=== PATIENT | female | born 1970 | race Caucasian/White ===

== ENCOUNTER 2023-06-22 16:54 | Emergency (ER) | payer MEDICAID, SELFPAY ==
[2023-06-22 16:56] VITALS: BP 132/61; PULSE 68; RESP 14; TEMP 36.9; O2SAT 95; BMI 21.2
--- NOTE | 2023-06-22 17:26 | PC.NURSE ---
DR BROWN AT BEDSIDE
--- NOTE | 2023-06-22 17:31 | HMH.EDGENADL ---
Discharge Plan Disposition Patient Disposition: Home, Self-Care Chief Complaint: Extremity Injury, Upper Referrals Follow up/Referrals: Esa Bryson [Primary Care Provider] - See instructions Activity Restrictions/Add. Instructions Additional Instructions/Restrictions: Call your family doctor to establish care for this visit to the emergency department and schedule follow-up within 48 hours to ensure improvement. If you have any worsening of your condition or any other concerning signs or symptoms, return to the emergency department or your primary care doctor for further evaluation. Clinical Impressions Clinical Impression: Chemical burn of finger of right hand Discharge ED Provider: Eldon Scott General Adult HPI General Chief complaint: Extremity Injury, Upper Stated complaint: ring stuck RT hand Time Seen by Provider: 06/22/23 16:57 Mode of Arrival: Ambulatory Source of Information: Patient Limitations: No Limitations Description of Symptoms (Recalled from ER Triage Doc. by RN): patient ambulatory to ED with complaints of hands swelling causing ring on right ring finger to constrict blood flow. Cap refill >3sec at present. pain noted at site, with discoloration from ring site. History of Present Illness HPI narrative: 53-year-old female no relevant to presenting with right ring finger complication. Patient states that she was cleaning with bleach a couple days prior to this visit. The ring on her right finger reacted with completion, swelling. Unable to get it off, having significant pain and swelling. No fevers or chills, or any other concerns. Related Data Allergies Allergy/AdvReac Type Severity Reaction Status Date / Time gabapentin Allergy Verified 06/22/23 17:22 nitrofurantoin Allergy Verified 06/22/23 17:22 [From Macrobid] [facility] Disclaimer: The information contained in this section may have been updated after the patient was seen, as this information can be updated by other users. Social History Smoking Status: Current every day smoker alcohol intake: never current occupational status: employed Travel in the last 8 weeks: None ROS Obtained: Yes All systems reviewed & no additional complaints except as documented Physical Exam General General appearance: alert and in no apparent distress Head Head exam: atraumatic and normocephalic Eye Eye exam: Present normal appearance, PERRL and EOMI ENT ENT exam: Present mucous membranes moist Neck Neck exam: Present normal inspection, full ROM and trachea midline Respiratory Respiratory exam: Absent respiratory distress, wheezes, stridor, accessory muscle use or prolonged expiratory phase Cardiovascular Cardiovascular exam: Present normal rhythm Abdominal Exam Abdominal exam: Present soft; Absent distention, tenderness, guarding, rebound or rigidity Extremities Exam Extremities exam: Present other (Right ring finger with circumferential black ring versus eschar on base of right ring finger. Neurovascularly intact. Painful, but range of motion also intact); Absent edema Neurological Exam Neurological exam: Present alert, oriented X3, CN II-XII intact and normal gait; Absent motor sensory deficit Skin Skin exam: Present warm and dry; Absent diaphoresis or erythema Medical Decision Making Medical Records Medical records reviewed: Yes I reviewed the patient's medical records. Joel Inquiry Pt receiving controlled substance: No Joel was queried for this patient: No Vital Signs: 06/22/23 16:56 Temperature 98.4 F Temperature Source Oral Pulse Rate [Right] 68 Respiratory Rate 14 Blood Pressure [Right Arm] 132/61 Blood Pressure Mean [Right Arm] 84 Blood Pressure Position [Right Arm] Sitting 02 Sat by Pulse Oximetry 95 Oxygen Delivery Method Room Air Medical Decision Narrative: 53-year-old female no relevant medical history presenting with chemical burn right ring finger. History was obtained via conversation with patient. On arrival, patient hemodynamically stable, alert, oriented x4, appropriate, GCS 15, moving all extremities spontaneously, pupils equal and reactive to light. Full physical exam performed and significant for ring in place right ring finger. This was cut off promptly. Patient has chemical burn that looks like it reacted with the bleach underneath. It is circumferential. Does not appear to be compromising blood flow or neurological status. Differential includes chemical burn, circumferential tourniquet, among others. Given patient presentation, workup, history, this most likely represents chemical burn right ring. Because patient well-appearing with no neurovascular deficits, she is deemed appropriate for outpatient management. Lots of reassurance was given. Patient was also instructed to watch out for any concerns for tightening of scar, significant pain, skin changes, etc. that would require prompt return. Because patient at baseline without signs or symptoms of clinical decompensation, deemed appropriate for discharge. Results were relayed to patient who voiced understanding and were agreeable to outpatient management and follow up. At the time of discharge the patient was hemodynamically stable, tolerating PO, and mobilizing appropriately. Critical Care Critical Care Time Critical Care Time: No
[2023-06-22 17:50] VITALS: BP 155/83; PULSE 100; RESP 18; TEMP 36.7; O2SAT 96
== END 2023-06-22 17:50 | disposition home or self-care (01) ==
PROVIDERS: Emergency Provider Emergency Medicine; PCP Nurse Practitioner Psychiatric/Mental Health
DX: T23.421A Corrosion of unspecified degree of single right finger (nail) except thumb, initial encounter (principal); T54.91XA Toxic effect of unspecified corrosive substance, accidental (unintentional), initial encounter; F17.200 Nicotine dependence, unspecified, uncomplicated
CPT/HCPCS: 99283

== ENCOUNTER 2023-06-26 16:06 | Emergency (ER) | payer MEDICAID, SELFPAY ==
[2023-06-26 16:30] VITALS: BP 149/89; PULSE 90; RESP 19; TEMP 37.2; O2SAT 98; BMI 23.3
--- NOTE | 2023-06-26 16:59 | ED_ITS ---
Discharge Plan Disposition Patient Disposition: Home, Self-Care Condition: Good Prescriptions Prescriptions: New ibuprofen 600 mg tablet 600 mg PO Q6HP PRN (Reason: Moderate Pain) Qty: 20 0RF amoxicillin-pot clavulanate 875-125 mg Tablet 1 tab PO Q12H Qty: 20 0RF Referrals Follow up/Referrals: Esa Bryson [Primary Care Provider] - See instructions Activity Restrictions/Add. Instructions Additional Instructions/Restrictions: Take medication as prescribed Follow up with your Family Doctor/Dentist next week as scheduled Salt water rinses may help with discomfort Clinical Impressions Clinical Impression: Abscess, dental Instructions Patient Instructions: DI for Tooth Abscess, Tooth Abscess Discharge ED Provider: Misti Silverman [facility] [place] HPI General Stated complaint: right side of face hurts from tooth Mode of Arrival: Ambulatory Source of Information: Patient Limitations: No Limitations Time Seen by Provider: 06/26/23 16:59 Description of Symptoms (Recalled from Triage Doc. by RN): PATIENT C/O POSSIBLE ABSCESS TO TOP RIGHT TOOTH X 4 DAYS HEENT Symptoms (Recalled from RN notes): Yes Resp Symptoms (Recalled from RN notes): No Skin Symptoms (Recalled from RN notes): No MS Symptoms (Recalled from RN notes): No Functional Status (Recalled from RN notes): WNL History of Present Illness Provider Complaint: Patient states that she has been having pain and swelling in her right jaw area where she has a broken loose tooth States that she called and made an appointment with the dentist but they was worried about the infection and recommended she come in and get antibiotics Related Data Previous Rx's Medication Instructions Recorded amoxicillin 875 mg-potassium 1 tab PO Q12H #20 tabs 06/26/23 clavulanate 125 mg tablet ibuprofen 600 mg tablet 600 mg PO Q6HP PRN Moderate Pain 06/26/23 #20 tabs Allergies Allergy/AdvReac Type Severity Reaction Status Date / Time gabapentin Allergy Verified 06/22/23 17:22 nitrofurantoin Allergy Verified 06/22/23 17:22 [From Macrobid] Worker's Comp Is this a Worker's Comp case?: No [facility] Disclaimer: The information contained in this section may have been updated after the patient was seen, as this information can be updated by other users. Medical History (Updated 06/26/23 @ 17:17 by Misti Silverman APRN) Hyperlipidemia Hypertension Social History (Updated 06/22/23 @ 17:35 by Eldon Scott MD) Smoking Status: Current every day smoker alcohol intake: never current occupational status: employed Travel in the last 8 weeks: None ROS Obtained: Yes All systems reviewed & no additional complaints except as documented and Yes Systems reviewed as appropriate & no additional complaints except as documented Constitutional Constitutional: Reports system reviewed and no additional complaints, except as documented and Reports as per HPI ENT Ears, Nose, Mouth, and Throat: Reports system reviewed and no additional complaints, except as documented, Reports as per HPI and Reports dental pain Cardiovascular Cardiovascular: Reports system reviewed and no additional complaints, except as documented and Reports as per HPI Respiratory Respiratory: Reports system reviewed and no additional complaints, except as documented and Reports as per HPI Gastrointestinal Gastrointestingal: Reports system reviewed and no additional complaints, except as documented and as per HPI Physical Exam General General appearance: alert and in no apparent distress ENT ENT exam: Present mucous membranes moist Expanded ENT Exam Teeth exam: Present dental caries and gingival swelling (right upper gumline) Respiratory Respiratory exam: Present normal lung sounds bilaterally; Absent respiratory distress or wheezes Cardiovascular Cardiovascular exam: Present regular rate, normal rhythm and normal heart sounds Neurological Exam Neurological exam: Present alert, oriented X3 and normal gait Medical Decision Making Joel Inquiry Pt receiving controlled substance: No Joel was queried for this patient: No Vital Signs: 06/26/23 16:30 Temperature 98.9 F Temperature Source Oral Pulse Rate [Left Brachial] 90 Respiratory Rate 19 Blood Pressure [Left Arm] 149/89 H Blood Pressure Mean [Left Arm] 109 Blood Pressure Source [Left Arm] Automatic Cuff Blood Pressure Position [Left Arm] Sitting 02 Sat by Pulse Oximetry 98 Oxygen Delivery Method Room Air
[2023-06-26] MEDS: TETRACAINE/BENZOCAINE/BUTAMBEN 56 GM SPRAY TP (17:08)
[2023-06-26] MEDS: LIDOCAINE 2% VISCOUS SOL 15ML UDC 15 ML PO (17:08)
[2023-06-26 17:18] VITALS: BP 149/89; PULSE 90; RESP 19; TEMP 37.2; O2SAT 98
== END 2023-06-26 17:22 | disposition home or self-care (01) ==
PROVIDERS: Emergency Provider Nurse Practitioner; PCP Nurse Practitioner Psychiatric/Mental Health
DX: K04.7 Periapical abscess without sinus (principal); R68.84 Jaw pain; F17.210 Nicotine dependence, cigarettes, uncomplicated; I10 Essential (primary) hypertension; E78.5 Hyperlipidemia, unspecified
CPT/HCPCS: 99204; 99212; G0463